=== PATIENT | female | born 1950 | race Caucasian/White ===

== ENCOUNTER 2019-07-18 15:01 | Outpatient (CLI) | payer MEDICARE, SELFPAY ==
--- NOTE | 2019-07-18 15:05 | CT_ITS ---
WS: [id number] CT CHEST WITHOUT INTRAVENOUS CONTRAST HISTORY: PULMONARY NODULE TECHNIQUE: Contiguous 5 mm axial imaging performed on the thorax. Coronal and sagittal reformats are submitted. All CT scans at [facility] use at least one of these dose optimization techniq ues: automated exposure control; mA and/or kV adjustment per patient size (includes targeted exams wh ere dose is matched to clinical indication); or iterative reconstruction. CONTRAST: None DLP: 743.66 mGy.cm COMPARISON: 03/29/2019 Lungs and central airway: Pulmonary hyperexpansion and changes of emphysema. Centrilobular emphysema in the upper lung collier. Micronodule towards the LEFT apex, image 14 of series 3. Additional stable 2 mm nodule RIGHT lower lobe, image 32 of series 3. Previously described subsolid nodule measuring 11 mm in diameter, image 35 of series 3 is stable. Lingular nodule is stable at 5 mm. Pleura: Normal. No pleural effusion. Heart and pericardium: Normal size heart. No pericardial effusion. Mediastinum and willem: No mediastinum or hilar adenopathy. Vessels: Mild atherosclerosis aorta. Pulmonary artery size is top normal and equal to the aorta. Scat tered calcifications in the coronary arteries. Chest wall and lower neck: No soft tissue masses. Upper abdomen: Upper pole RIGHT kidney is atrophied but stable. Cyst in the LEFT kidney are unchanged . Hepatic cysts are also noted with no progression in size. Osseous structures: Increase in thoracic kyphosis. Mild spondylitic changes. CT/CT chest wo con [id number] IMPRESSION: 1. Stable pulmonary nodules since 03/29/2019 and 03/07/2018. The nodule in the medial RIGHT lower lobe has increased slightly in size since 04/09/2017. Need to document additional 12 month follow-up. 2. Recommend noncontrast chest CT follow-up in 12 months. 3. Moderate chronic emphysema.
== END 2019-07-18 15:02 | disposition home or self-care (01) ==
LOC: CT 15:03
PROVIDERS: Family Provider Nurse Practitioner Family; PCP Nurse Practitioner Family; Visit Provider Nurse Practitioner Family
DX: R91.8 Other nonspecific abnormal finding of lung field (principal)
CPT/HCPCS: 71250

== ENCOUNTER 2020-06-14 09:42 | Outpatient (CLI) | payer MEDICARE, SELFPAY ==
--- NOTE | 2020-06-14 09:54 | CT_ITS ---
WS: [id number] CT CHEST TECHNIQUE: Noncontrast CT of the chest with coronal and sagittal reformatted images. CLINICAL INFORMATION: LUNG FIELD ABNORMAL COMPARISON: July 18, 2019 and DLP: 870.[address] scans at [facility] use at least one of these dose optimization techniques: automat ed exposure control; mA and/or kV adjustment per patient size (includes targeted exams where dose is matched to clinical indication); or iterative reconstruction. FINDINGS: Moderate chronic emphysematous changes. No acute pulmonary infiltrates. Right lower lobe pulmonary no dule along the posterior mediastinum measures 9 mm unchanged. Stable subcentimeter right lower lobe a nd lingula nodules. No axillary lymphadenopathy. Stable left renal cysts. Stable hepatic cyst noted in the dome of the li raina. Adrenal glands are normal. CT/CT chest wo con [id number] IMPRESSION: 1. Previously described pulmonary nodules are stable since July 18, 2019. Recommend 12 month follow-up. 2. Moderate chronic emphysematous changes. No acute infiltrates. 3. No mediastinal or hilar lymphadenopathy.
== END 2020-06-14 09:43 | disposition home or self-care (01) ==
LOC: RADWPI 09:50
PROVIDERS: PCP Nurse Practitioner Family; Visit Provider Nurse Practitioner Family
DX: R91.8 Other nonspecific abnormal finding of lung field (principal)
CPT/HCPCS: 71250

== ENCOUNTER 2021-03-17 13:13 | Outpatient (CLI) | payer MEDICARE, SELFPAY ==
--- NOTE | 2021-03-17 13:29 | XR_ITS ---
WS: [id number] XR chest 2V* [id number] REASON FOR EXAM: ATRIAL FIBRILLATION FINDINGS: Mild tortuosity the thoracic aorta. Normal heart size. Calcified granulomatous disease in both hemithoraces. No active pulmonary parenchymal or pleural disease. No significant abnormality of the bony thorax. XR/XR chest 2V* [id number] IMPRESSION: No acute chest abnormality.
== END 2021-03-17 13:14 | disposition home or self-care (01) ==
PROVIDERS: PCP Nurse Practitioner Family; Visit Provider Family Medicine
DX: I48.91 Unspecified atrial fibrillation (principal)
CPT/HCPCS: 71046

== ENCOUNTER 2021-07-07 10:45 | Outpatient (CLI) | payer MEDICARE, SELFPAY ==
--- NOTE | 2021-07-07 11:00 | CT_ITS ---
WS: [id number] CT CHEST WITHOUT INTRAVENOUS CONTRAST HISTORY: LUNG FIELD ABNORMAL TECHNIQUE: Contiguous 5 mm axial imaging performed on the thorax. Coronal and sagittal reformats are submitted. All CT scans at [facility] use at least one of these dose optimization techniques: automated exposure control; mA and/or kV adjustment per patient size (includes targeted exams where dose is matched to clinical indication); or iterative reconstruction. CONTRAST: None DLP: 363.14 mGy.cm COMPARISON: 06/14/2020 and 07/18/2019 Lungs and central airway: Hyperexpanded lungs with emphysema and areas of scarring. There are multipl e small nodules. The largest nodule is some solid nodule measuring 11 mm in the posterior medial RIGH T lower lobe. Not significantly changed in size since at least 03/29/2019. There are a few additional pulmonary nodules also identified with areas of pleural nodularity. No new or increasing nodules. Pleura: No effusion. Heart and pericardium: Normal size heart with no pericardial effusion. Mediastinum and willem: No mediastinum or hilar adenopathy. Vessels: Normal size aortic and pulmonary artery. No coronary artery calcifications. Chest wall and lower neck: No soft tissue masses. Upper abdomen: Multiple large cystic masses in the LEFT kidney. The largest measures 7.3 x 7.9 cm. Fo dread atrophy and scarring of the superior pole RIGHT kidney. Low-attenuation nodule towards the superi or liver surface measures 0.7 cm. Surface of the liver is lobulated suggesting cirrhosis. Osseous structures: No destructive process. CT/CT chest wo con [id number] IMPRESSION: 1. Pulmonary nodules and pleural nodules and scarring are all stable since at 03/29/2019. The largest nodule is subsolid measuring 11 mm in the posterior med ial RIGHT lower lobe. Due to the numerous small nodules consider continued [address] [facility] [address] evaluation. 2. No adenopathy. 3. Marked emphysema.
== END 2021-07-07 10:46 | disposition home or self-care (01) ==
LOC: RAD 10:55
PROVIDERS: PCP Nurse Practitioner Family; Visit Provider Nurse Practitioner Family
DX: R91.8 Other nonspecific abnormal finding of lung field (principal); J43.9 Emphysema, unspecified
CPT/HCPCS: 71250

== ENCOUNTER 2021-11-13 13:48 | Outpatient (CLI) | payer MEDICARE, SELFPAY ==
--- NOTE | 2021-11-13 14:01 | MM_ITS ---
WS: [id number] BILATERAL 3D TOMOSYNTHESIS DIGITAL SCREENING MAMMOGRAPHY WITH CAD CLINICAL INFORMATION: SCREENING HISTORY: Screening mammogram. No current complaints. COMPARISON: TECHNIQUE: Bilateral CC and MLO views. FINDINGS: History of breast reduction Scattered fibroglandular densities bilaterally. Punctate and lucent centered calcifications. Vascular calcification. Biopsy clip LEFT breast. No suspicious focal mass, asymmetry, calcifications, or arch itectural distortion. No evidence of malignancy. MM/[place] [id number] IMPRESSION: BI-RADS: 2-Benign FOLLOW UP: 1 Year Follow-up Recommend return to annual screening mammography.
== END 2021-11-13 13:49 | disposition home or self-care (01) ==
PROVIDERS: PCP Nurse Practitioner Family; Visit Provider Nurse Practitioner Family
DX: Z12.31 Encounter for screening mammogram for malignant neoplasm of breast (principal); M81.0 Age-related osteoporosis without current pathological fracture
CPT/HCPCS: 77063; 77067

== ENCOUNTER 2022-01-06 13:21 | Outpatient (CLI) | payer MEDICARE, SELFPAY ==
--- NOTE | 2022-01-06 13:27 | XR_ITS ---
WS: [id number] SCREENING DEXA SCAN [place] CLINICAL INFORMATION: AGE RELATED OSTEOPOROSIS COMPARISON: 2018 FINDINGS: LEFT forearm bone mineral density measures 0.722. This corresponds to a T score score of -1.8 and Z s core of 0.4. Left femoral neck bone mineral density measures 0.743 g/cm2. This corresponds to a T score of -2.1 an d Z score of -0.7. Right femoral neck bone mineral density measures 0.786 g/cm2. This corresponds to a T score -1.8of an d Z score of -0.4. Mean femoral neck bone mineral density measures 0.765 g/cm2. This corresponds to a T score of -1.9 an d Z score of -0.5. XR/XR DEXA axial skeleton* [id number] IMPRESSION: Osteopenia Patient's FRAX calculated 10 year probability for major osteoporotic fracture i s 12.6 % and osteoporotic hip fracture is 2.9%. Bone mineral density LEFT forearm decreased -5.0% and decreased -11.1% in the f emoral necks since 2018
== END 2022-01-06 13:22 | disposition home or self-care (01) ==
LOC: RAD 13:22
PROVIDERS: PCP Clinical Nurse Specialist Adult Health; Visit Provider Nurse Practitioner Family
DX: M81.0 Age-related osteoporosis without current pathological fracture (principal); M85.80 Other specified disorders of bone density and structure, unspecified site
CPT/HCPCS: 77080

== ENCOUNTER → 2022-03-11 11:13 | Outpatient (BNVA) | payer MEDICARE, SELFPAY | PROVIDERS: PCP Clinical Nurse Specialist Adult Health; Visit Provider Clinical Nurse Specialist Adult Health | DX: I10 Essential (primary) hypertension (principal); E78.5 Hyperlipidemia, unspecified | CPT/HCPCS: 80053; 80061; 85025 ==

== ENCOUNTER → 2022-03-25 12:42 | Outpatient (BNVA) | payer MEDICARE, SELFPAY | PROVIDERS: PCP Clinical Nurse Specialist Adult Health; Visit Provider Internal Medicine | DX: I77.9 Disorder of arteries and arterioles, unspecified (principal); G47.30 Sleep apnea, unspecified; I10 Essential (primary) hypertension; E78.5 Hyperlipidemia, unspecified; I65.23 Occlusion and stenosis of bilateral carotid arteries; I49.3 Ventricular premature depolarization; Z87.891 Personal history of nicotine dependence | CPT/HCPCS: 99214 ==

== ENCOUNTER → 2022-09-11 10:42 | Outpatient (BNVA) | payer MEDICARE, SELFPAY | PROVIDERS: PCP Clinical Nurse Specialist Adult Health; Visit Provider Clinical Nurse Specialist Adult Health | DX: E78.5 Hyperlipidemia, unspecified (principal); I10 Essential (primary) hypertension | CPT/HCPCS: 80053; 80061; 85025 ==

== ENCOUNTER 2022-10-27 11:31 | Outpatient (CLI) | payer MEDICARE, SELFPAY ==
--- NOTE | 2022-10-27 12:30 | CT_ITS ---
WS: [id number] CT chest wo con [id number] HISTORY: hx abnormal CT scan, yearly monitoring TECHNIQUE: Axial imaging performed through the thorax. Coronal and sagittal reformats are submitted. All CT scans at [facility] use at least one of these dose optimization techniques: automated exposure control; mA and/or kV adjustment per patient size (includes targeted exams where dose is mat ched to clinical indication); or iterative reconstruction. CONTRAST: None DLP: 285.45 mGy.cm COMPARISON: 07/07/2021, 06/14/2020 and 03/29/2019 Lungs and central airway: Marked hyperexpansion with central lobular emphysema. Several small, subcen timeter in pulmonary nodules are reidentified. There is a single nodule which is slightly more spicul ated and is very slowly increased in size since 2017 in the medial RIGHT lower lobe. Nodule now measu res 12 x 12 x 10 mm. Prior measurement 8 x 11 x 9 mm. There is additional subsolid opacification supe rior segment RIGHT lower lobe along the fissure which is stable. Pleura: Normal. No pleural effusion. Heart and pericardium: Normal size heart with no pericardial effusion. Mediastinum and willem: No mediastinum or hilar adenopathy. Vessels: Mild atherosclerosis aorta. No aneurysm. Mildly prominent pulmonary artery. Chest wall and lower neck: No soft tissue masses. Upper abdomen: Small hiatal hernia. Low-attenuation 9 mm mass in the superior liver has minimally inc reased in size over the most recent examinations. No new low-attenuation nodules. LEFT renal cysts. N o adrenal mass. Osseous structures: No destructive process. CT/CT chest wo con [id number] IMPRESSION: 1. Slight increase in size of spiculated nodule in the medial RIGHT lower lobe since 2017 and also the most recent study of 07/07/2021. This nodule now measur es 12 x 12 x 10 mm as compared to 8 x 11 x 9 mm from the most recent study. The remaining nodules are subcentimeter and stable. Recommend PET/CT imaging. 2. No adenopathy. 3. Advanced centrilobular emphysema. 4. Pulmonary hypertension. 5. 9 mm low-attenuation lesion superior liver. Probably a cyst but slightly in creased in size. Hepatic nodule can also be reevaluated on PET/CT imaging.
== END 2022-10-27 11:32 | disposition home or self-care (01) ==
PROVIDERS: PCP Clinical Nurse Specialist Adult Health; Visit Provider Clinical Nurse Specialist Adult Health
DX: R91.1 Solitary pulmonary nodule (principal); J43.2 Centrilobular emphysema; I27.20 Pulmonary hypertension, unspecified; K76.9 Liver disease, unspecified
CPT/HCPCS: 71250

== ENCOUNTER 2022-12-05 05:38 | Outpatient (CLI) | payer MEDICARE, SELFPAY ==
--- NOTE | 2022-12-05 11:00 | PETR_ITS ---
PROCEDURE INFORMATION: Exam: PET/CT Skull Base to Mid-thigh Exam date and time: 12/05/2022 11:04 AM Age: 72 years old Clinical indication: Workup of of abnormal radiologic findings on CT chest 10/27/22 (1.2 cm lung nodule in the right lower lobe, 0.9 cm hypodense focus in the liver); Prior surgery; Surgery date: 6+ months; Surgery type: RT kidney, hiatal hernia, back. LABS AND CLINICAL REPORTS: Glucose: 109 mg/dl Treatment strategy for malignancy (PET staging): Restaging (PS) TECHNIQUE: Imaging protocol: Following at least four-hour fasting and following the injection of radiopharmaceutical, low dose CT images were obtained. Then, PET images were obtained. Attenuation corrected images were constructed using the CT scan. Fused images of PET and CT were reviewed. The standardized uptake values (SUV) reported below are maximum values within a region of interest, expressed in gm/ml. Exam includes orbital meatal line to mid-thigh. Radiopharmaceutical: 12.29 mCi F-18 FDG (Fluorodeoxyglucose), IV. Time of imaging post radiopharmaceutical administration: 1 hour Injection site: Right antecubital vein COMPARISON: CT chest 10/27/2022, 06/14/2020, 03/29/2019, 03/07/2018, 04/09/2017 FINDINGS: Brain: Visualized brain has normal physiologic uptake. Pharynx: No abnormal uptake. Larynx: No abnormal uptake. Lungs, pleura and trachea: 1.2 cm right lower lobe nodule on image 68 measures 2 SUV. The maximal size of this lesion is unchanged since 2018 and slightly increased since . Increased solid component present in comparison with 2020. Persistent moderate centrilobular emphysema in the upper lobes. No pleural effusion Heart: Normal physiologic uptake. There is no cardiomegaly. Mild coronary artery calcification is present. There is no pericardial effusion. Mediastinal space: No abnormal uptake. Liver: No abnormal uptake. 0.9 cm cyst in the segment 4 is stable in size since 04/09/2017. Gallbladder and bile ducts: No abnormal uptake. No calcified gallstones. Pancreas: No abnormal uptake. Spleen: No abnormal uptake. No splenomegaly. Adrenal glands: No abnormal uptake. Kidneys and ureters: Normal physiologic uptake. No hydronephrosis. Persistent simple cysts in the left kidney including the largest 8.2 cm cyst exophytic cephalad from the upper pole. Stomach and bowel: No abnormal uptake. Intraperitoneal and retroperitoneal spaces: No abnormal uptake. No ascites. Bladder: Normal physiologic uptake. Reproductive: No abnormal uptake. The uterus is absent post surgically. Vasculature: No abnormal uptake. No aortic aneurysm. Lymph nodes: No abnormal uptake. No lymphadenopathy in the head, neck, chest, abdomen, pelvis, and extremities. Bones/joints: Increased synovial uptake in both shoulders is suggestive of benign degenerative/inflammatory finding. Status post L5-S1 fusion with bilateral transpedicular internal fixation. Soft tissues: No mass. Increased intramuscular uptake in the anterior inferior most aspect of bilateral gluteal muscles represents benign finding. [id number] IMPRESSION: 1.2 cm right lower lobe part solid nodule measures 2 SUV with very minimal increase in solid component since 2020 and slight increase in size since 2018. Malignancy is not excluded. No FDG avid lymphadenopathy or other evidence of metastatic disease. Small cyst in the liver is unchanged since multiple prior exams.
== END 2022-12-05 05:39 | disposition home or self-care (01) ==
LOC: RAD 12-07 05:38
PROVIDERS: PCP Clinical Nurse Specialist Adult Health; Visit Provider Clinical Nurse Specialist Adult Health
DX: R91.1 Solitary pulmonary nodule (principal)
CPT/HCPCS: 78815; A9552

== ENCOUNTER → 2022-12-29 15:41 | Outpatient (BNVA) | payer MEDICARE, SELFPAY | PROVIDERS: PCP Clinical Nurse Specialist Adult Health; Visit Provider Internal Medicine Pulmonary Disease | DX: R91.1 Solitary pulmonary nodule (principal) | CPT/HCPCS: 36415; 99204 ==

== ENCOUNTER → 2023-03-08 16:03 | Outpatient (BNVA) | payer MEDICARE, SELFPAY | PROVIDERS: PCP Clinical Nurse Specialist Adult Health; Visit Provider Internal Medicine Pulmonary Disease | DX: E78.5 Hyperlipidemia, unspecified (principal); R91.1 Solitary pulmonary nodule; J42 Unspecified chronic bronchitis; G25.0 Essential tremor; Z87.891 Personal history of nicotine dependence; M54.50 Low back pain, unspecified | CPT/HCPCS: 99214 ==

== ENCOUNTER 2023-03-15 11:54 | Outpatient (CLI) | payer MEDICARE, SELFPAY ==
--- NOTE | 2023-03-15 12:00 | XRR_ITS ---
PROCEDURE INFORMATION: Exam: XR Right Shoulder Exam date and time: 03/15/2023 12:06 PM Age: 72 years old Clinical indication: Pain; Shoulder; Right; Additional info: Decreased rom and pain with rom TECHNIQUE: Imaging protocol: Radiologic exam of the right shoulder. Views: 2 or more views. COMPARISON: CT chest wo con [id number] 10/27/2022 11:53 AM FINDINGS: Bones/joints: Osteopenia. No radiographic evidence of acute fracture or dislocation. Alignment anatomic. Mild glenohumeral and acromioclavicular osteoarthrosis. Soft tissues: Grossly unremarkable. XR/XR shoulder RT min 2V* [id number] IMPRESSION: Mild glenohumeral and acromioclavicular osteoarthrosis.
== END 2023-03-15 11:55 | disposition home or self-care (01) ==
LOC: RAD 11:56
PROVIDERS: PCP Clinical Nurse Specialist Adult Health; Visit Provider Clinical Nurse Specialist Adult Health
DX: M19.011 Primary osteoarthritis, right shoulder (principal); G25.0 Essential tremor
CPT/HCPCS: 73030; 80053; 84443; 85025

== ENCOUNTER → 2023-03-24 12:32 | Outpatient (BNVA) | payer MEDICARE, SELFPAY | PROVIDERS: PCP Clinical Nurse Specialist Adult Health; Visit Provider Internal Medicine | DX: I77.9 Disorder of arteries and arterioles, unspecified (principal); G47.30 Sleep apnea, unspecified; I10 Essential (primary) hypertension; E78.5 Hyperlipidemia, unspecified; I65.23 Occlusion and stenosis of bilateral carotid arteries; I49.3 Ventricular premature depolarization; Z87.891 Personal history of nicotine dependence | CPT/HCPCS: 99214 ==

== ENCOUNTER 2023-04-05 03:00 | Outpatient (CLI) | payer MEDICARE, SELFPAY ==
--- NOTE | 2023-04-05 15:15 | USCV_ITS ---
Laura Dunham Age: 72 Gender: F : 1950 Exam Date: 04/05/2023 15:12 Ordering Phys: Jerrod Jacome M.D ([email or web address]) Technologist: YANELI Exam Location: [facility] – [place] Indication: bilateral carotid stenosis Risk Factors: none Previous Vascular Surgery: none Right Brachial BP: / Left Brachial BP: / Right Left Velocity (cm/s) Spectral Plaque Velocity (cm/s) Spectral Plaque Syst/Diast Broadening Syst/Diast Broadening 52.00/ 14.00 Prox CCA 49.60 / 14.50 62.10/ 1701.0 Mid CCA 32.20 / 11.20 0 28.90/ 13.80 Distal CCA 30.20 / 9.90 52.60/ 19.10 Prox ICA 48.00 / 14.50 58.90/ 23.20 Mid ICA 75.40 / 24.90 71.90/ 22.60 Distal ICA 77.40 / 26.40 51.90 ECA 72.20 1.16 ICA/CCA 1.56 Antegrade Vertebral Antegrade 42.20/ 8.50 cm/s 44.40/ 7.30 cm/s Tri Subclavian Tri 168.9 86.00 0 CONCLUSIONS Right ICA stenosis <50%. Mild atheromatous plaque right carotid bulb/ICA. Left ICA stenosis <50%. Mild atheromatous plaque left carotid bulb/ICA. Intimal thickening in the common carotid arteries and internal carotid arteries bilaterally. Normal antegrade Doppler flow noted in the right vertebral artery. Normal antegrade Doppler flow noted in the left vertebral artery. Bharathi Montana MD (Electronically Signed) Final Date: 05 April 2023 16:23 S
== END 2023-04-05 03:01 | disposition home or self-care (01) ==
LOC: RAD 06-21 09:54
PROVIDERS: PCP Clinical Nurse Specialist Adult Health; Visit Provider Internal Medicine
DX: I65.23 Occlusion and stenosis of bilateral carotid arteries (principal)
CPT/HCPCS: 93880

== ENCOUNTER 2023-04-05 14:19 | Outpatient (CLI) | payer MEDICARE, SELFPAY ==
--- NOTE | 2023-04-05 | USCV_ITS ---
Laura Dunham Age: 72 Gender: F : 1950 Exam Date: 04/05/2023 15:12 Ordering Phys: Jerrod Jacome M.D ([email or web address]) Technologist: YANELI Exam Location: [facility] – [place], [place] Indication: bilateral carotid stenosis Risk Factors: none Previous Vascular Surgery: none Right Brachial BP: / Left Brachial BP: / Right Left Velocity (cm/s) Spectral Plaque Velocity (cm/s) Spectral Plaque Syst/Diast Broadening Syst/Diast Broadening 52.00/ 14.00 Prox CCA 49.60 / 14.50 62.10/ 1701.0 Mid CCA 32.20 / 11.20 0 28.90/ 13.80 Distal CCA 30.20 / 9.90 52.60/ 19.10 Prox ICA 48.00 / 14.50 58.90/ 23.20 Mid ICA 75.40 / 24.90 71.90/ 22.60 Distal ICA 77.40 / 26.40 51.90 ECA 72.20 1.16 ICA/CCA 1.56 Antegrade Vertebral Antegrade 42.20/ 8.50 cm/s 44.40/ 7.30 cm/s Tri Subclavian Tri 168.9 86.00 0 CONCLUSIONS Right ICA stenosis <50%. Mild atheromatous plaque right carotid bulb/ICA. Left ICA stenosis <50%. Mild atheromatous plaque left carotid bulb/ICA. Intimal thickening in the common carotid arteries and internal carotid arteries bilaterally. Normal antegrade Doppler flow noted in the right vertebral artery. Normal antegrade Doppler flow noted in the left vertebral artery. Bharathi Montana MD (Electronically Signed) Final Date: 05 April 2023 16:23 S
--- NOTE | 2023-04-05 14:30 | USCV_ITS ---
Charla Laura Age: 72 Gender: F : 1950 Exam Date: 04/05/2023 14:50 Ordering Phys: Jerrod Jacome M.D ([email or web address]) Technologist: YANELI [place] [facility] [place] Indication: CP, SOB BP: 130 / 70 HR: 54 Rhythm: Sinus Technical Quality: Adequate MEASUREMENTS (Male / Female) Normal Values 2D ECHO LV Diastolic Diameter PLAX 4.1 cm 4.2 - 5.9 / 3.9 - 5.3 cm LV Systolic Diameter PLAX 2.3 cm IVS Diastolic Thickness 1.0 cm 0.6 - 1.0 / 0.6 - 0.9 cm IVS Systolic Thickness 1.3 cm LVPW Diastolic Thickness 1.0 cm 0.6 - 1.0 / 0.6 - 0.9 cm LVPW Systolic Thickness 1.7 cm LVOT Diameter 2.0 cm LV Ejection Fraction 2D Teich 76.7 % LV Ejection Fraction MOD 2C 75.8 % LV Ejection Fraction 2C AL 75.2 % LA Diameter 2.4 cm LA Width 3.4 cm LA Height 3.7 cm RA Width 3.2 cm RA Height 3.9 cm Aorta at Sinotubular Diameter 2.1 cm IVC Diameter 1.2 cm M-MODE Aortic Annulus Diameter 2.3 cm LA Ao Ratio MM 1.3 MV E Point Septal Separation 0.5 cm DOPPLER AV Peak Velocity 137.0 cm/s LVOT Peak Velocity 108.0 cm/s AV Area Cont Eq vti 2.5 cm squared AV Area Cont Eq pk 2.5 cm squared MV Peak Velocity 118.0 cm/s MV Area PHT 2.8 cm squared Mitral E to A Ratio 0.8 MV E' Velocity 42.0 cm/s Mitral E to MV E' Ratio 9.0 Mitral E to LV E' Lateral Ratio 8.5 Mitral E to LV E' Septal Ratio 9.6 TR Peak Velocity 92.3 cm/s TR Peak Gradient 3.4 mmHg Right Atrial Pressure 5.0 mmHg Pulmonary Artery Systolic Pressu 8.4 mmHg PV Peak Velocity 82.0 cm/s RV Acceleration Time 0.1 s RV Ejection Time 0.3 s RV AcT/ET 0.2 FINDINGS Left Ventricle Left ventricle is normal in size. LV systolic function is normal with EF of 55 to 60%. No regional wall motion abnormalities are seen. Grade 1 diastolic dysfunction Right Ventricle Normal in size and function Right Atrium Normal in size Left Atrium Normal in size Mitral Valve Structurally normal mitral valve. Mild mitral regurgitation Aortic Valve Structurally normal aortic valve. No significant stenosis. Trace aortic regurgitation. Tricuspid Valve Trace tricuspid regurgitation. Insufficient TR jet to calculate RVSP. Pulmonic Valve Not well visualized Pericardium Normal Aorta Normal in size IVC Appears to be normal CONCLUSIONS LV systolic function is normal with EF of 55 to 60%. Grade 1 diastolic dysfunction. Mild mitral regurgitation Trace aortic regurgitation Trace tricuspid regurgitation Compared to prior echocardiogram from 2016, no significant changes are seen Jerrod Jacome MD (Electronically Signed) Final Date: 06 April 2023 14:04 S
== END 2023-04-05 14:20 | disposition home or self-care (01) ==
LOC: RAD 14:19
PROVIDERS: PCP Clinical Nurse Specialist Adult Health; Visit Provider Internal Medicine
DX: R06.02 Shortness of breath (principal); R07.9 Chest pain, unspecified; I65.23 Occlusion and stenosis of bilateral carotid arteries; I51.89 Other ill-defined heart diseases; I34.0 Nonrheumatic mitral (valve) insufficiency
CPT/HCPCS: 93306; 93880

== ENCOUNTER → 2023-05-14 09:43 | Outpatient (BNVA) | payer MEDICARE, SELFPAY | PROVIDERS: PCP Clinical Nurse Specialist Adult Health; Visit Provider Specialist | DX: G90.3 Multi-system degeneration of the autonomic nervous system (principal); R13.10 Dysphagia, unspecified; F03.B0 Unspecified dementia, moderate, without behavioral disturbance, psychotic disturbance, mood disturbance, and anxiety | CPT/HCPCS: 99205 ==

== ENCOUNTER 2023-06-03 12:36 | Outpatient (RCR) | payer MEDICARE, SELFPAY | END 2023-06-03 23:59 | disposition home or self-care (01) | LOC: SST 12:36 | PROVIDERS: PCP Clinical Nurse Specialist Adult Health; Visit Provider Specialist | DX: R13.10 Dysphagia, unspecified (principal) | CPT/HCPCS: 92610 ==

== ENCOUNTER → 2023-06-14 14:32 | Outpatient (BNVA) | payer MEDICARE, SELFPAY | PROVIDERS: PCP Clinical Nurse Specialist Adult Health; Visit Provider Clinical Nurse Specialist Adult Health | DX: I10 Essential (primary) hypertension (principal) | CPT/HCPCS: 85025 ==

== ENCOUNTER 2023-06-22 10:27 | Outpatient (CLI) | payer MEDICARE, SELFPAY ==
--- NOTE | 2023-06-22 11:00 | CT_ITS ---
WS: [id number] CT chest wo con [id number] HISTORY: follow-up on lung nodule TECHNIQUE: Axial imaging performed through the thorax. Coronal and sagittal reformats are submitted. All CT scans at [facility] use at least one of these dose optimization techniques: automated exposure control; mA and/or kV adjustment per patient size (includes targeted exams where dose is mat ched to clinical indication); or iterative reconstruction. CONTRAST: None DLP: 325.54 mGy.cm COMPARISON: 10/27/2022, 07/07/2021, 06/14/2020 PET/CT 12/05/2022 Lungs and central airway: Chronic emphysema. Bullous emphysema. Reidentified is a solid nodule with s piculation involving the superior medial segment RIGHT lower lobe. Spiculated nodule is reidentified now measuring 15 x 12 x 13 mm. This nodule has slowly increased in size over the last several years. Indeterminate but suspicious by PET/CT. There is an additional area of very subtle subcentimeter grou ndglass attenuation towards the superior segment RIGHT lower lobe. 4 mm pleural nodule LEFT lower lob e unchanged. No additional mass or nodule or pneumonia. Pleura: Normal. No pleural effusion. Heart and pericardium: Mild cardiomegaly. Mediastinum and willem: No mediastinum or hilar adenopathy. Vessels: Normal size aortic and pulmonary artery. No coronary artery calcifications. Chest wall and lower neck: No soft tissue masses. Upper abdomen: Large hiatal hernia. Several cysts are identified in the upper pole the LEFT kidney. Osseous structures: No destructive process. IMPRESSION: 1. Continued slow increase in size of the spiculated nodule superior medial segment RIGHT lower lobe . Nodule measures 15 x 12 x 13 mm as compared to 12 x 12 x 10 mm. Nodule has slowly increased in size over several prior examinations and was suspicious but indeterminate on recent PET/CT. This lesion i s suspicious for neoplasm. 2. Emphysema. 3. No mediastinal or hilar adenopathy. 4. Mild cardiomegaly. 5. Hepatic and LEFT renal cyst.
== END 2023-06-22 10:28 | disposition home or self-care (01) ==
LOC: RAD 10:27
PROVIDERS: PCP Clinical Nurse Specialist Adult Health; Visit Provider Internal Medicine Pulmonary Disease
DX: R91.1 Solitary pulmonary nodule (principal); J43.9 Emphysema, unspecified
CPT/HCPCS: 71250

== ENCOUNTER → 2023-07-12 13:56 | Outpatient (BNVA) | payer MEDICARE, BC, SELFPAY | PROVIDERS: PCP Clinical Nurse Specialist Adult Health; Visit Provider Internal Medicine Pulmonary Disease | DX: J42 Unspecified chronic bronchitis (principal); R91.1 Solitary pulmonary nodule; G25.0 Essential tremor; F17.210 Nicotine dependence, cigarettes, uncomplicated | CPT/HCPCS: 99214 ==

== ENCOUNTER → 2023-07-15 12:55 | Outpatient (BNVA) | payer MEDICARE, SELFPAY | PROVIDERS: PCP Clinical Nurse Specialist Adult Health; Visit Provider Specialist | DX: R13.10 Dysphagia, unspecified (principal); G25.0 Essential tremor | CPT/HCPCS: 99214 ==

== ENCOUNTER 2023-07-27 11:51 | Outpatient (CLI) | payer MEDICARE, SELFPAY ==
--- NOTE | 2023-07-27 12:30 | PETR_ITS ---
PROCEDURE INFORMATION: Exam: PET/CT Skull Base to Mid-thigh Exam date and time: 07/27/2023 12:43 PM Age: 72 years old Clinical indication: Abnormal findings; Continued slow increase in size of the spiculated nodule superior medial segment right lower. Lobe. Nodule measures 15 x 12 x 13 mm as compared to 12 x 12 x 10 mm. Nodule has slowly increased in. Size over several prior examinations and was suspicious but indeterminate on recent pet/ct. This. Lesion is suspicious for neoplasm. ; Additional info: Pulmonary nodule LABS AND CLINICAL REPORTS: Glucose: 114 mg/dl Treatment strategy for malignancy (PET staging): Initial Staging (PI) TECHNIQUE: Imaging protocol: Following at least four-hour fasting and following the injection of radiopharmaceutical, low dose CT images were obtained. Then, PET images were obtained. Attenuation corrected images were constructed using the CT scan. Fused images of PET and CT were reviewed. The standardized uptake values (SUV) reported below are maximum values within a region of interest, expressed in gm/ml. Exam includes orbital meatal line to mid-thigh. Radiopharmaceutical: 12.19 mCi F-18 FDG (Fluorodeoxyglucose), IV. Time of imaging post radiopharmaceutical administration: 1 hour Injection site: Right antecubital vein COMPARISON: CT chest 06/22/2023, PET skulltothigh SUBSEQ [id number] 12/05/2022 FINDINGS: Brain: Visualized brain has normal physiologic uptake. Pharynx: No abnormal uptake. Larynx: No abnormal uptake. Lungs, pleura and trachea: No abnormal uptake. 12 mm part solid opacity medially in the right lower lobe on axial image 97 is not FDG avid (1.4 SUV). 8 mm ground-glass opacity in the superior segment of the right lower lobe on axial image 80 is not FDG avid. There is moderate centrilobular emphysema in the upper lungs. No pleural effusion. Heart: Normal physiologic uptake. There is no cardiomegaly. Coronary artery calcification is present. There is no pericardial effusion. Mediastinal space: No abnormal uptake. Liver: No abnormal uptake. Stable 1.2 cm simple cyst in the segment 4. Gallbladder and bile ducts: No abnormal uptake. No calcified gallstones. Pancreas: No abnormal uptake. Spleen: No abnormal uptake. No splenomegaly. Adrenal glands: No abnormal uptake. No nodules. Kidneys and ureters: Normal physiologic uptake. No hydronephrosis. Simple cysts in both kidneys including the largest 8.5 cm cyst exophytic from the upper pole of the left kidney. Stomach and bowel: No abnormal uptake. Intraperitoneal and retroperitoneal spaces: No abnormal uptake. No ascites. Urinary bladder: Normal physiologic uptake. Reproductive: No abnormal uptake. The uterus is absent post surgically. Vasculature: No abnormal uptake. No aortic aneurysm. Lymph nodes: No abnormal uptake. No lymphadenopathy in the head, neck, chest, abdomen, pelvis, and extremities. Bones/joints: Increased linear synovial uptake anteriorly to the head of the left femur is suggestive of benign finding. Status post L5-S1 fusion with anterior interbody internal fixation Soft tissues: No abnormal uptake in the visualized head, neck, chest, abdomen, pelvis, and extremities. [id number] IMPRESSION: No abnormal radiotracer uptake to suggest malignancy. 12 mm part solid right lower lobe nodule stable in size since 12/05/2022 is not FDG avid (current uptake 1.4 SUV, previously 2 SUV). Stable non FDG avid 8 mm ground-glass opacity in the right lower lobe. Additional stable benign incidental findings (small hepatic cyst, bilateral simple renal cysts, prior hysterectomy, postsurgical changes in the lumbar spine).
== END 2023-07-27 11:52 | disposition home or self-care (01) ==
LOC: RAD 11:51
PROVIDERS: PCP Clinical Nurse Specialist Adult Health; Visit Provider Internal Medicine Pulmonary Disease
DX: R91.1 Solitary pulmonary nodule (principal)
CPT/HCPCS: 78815; A9552

== ENCOUNTER → 2023-08-03 14:46 | Outpatient (BNVA) | payer MEDICARE, SELFPAY | PROVIDERS: PCP Clinical Nurse Specialist Adult Health; Visit Provider Internal Medicine Pulmonary Disease | DX: R91.1 Solitary pulmonary nodule (principal); J42 Unspecified chronic bronchitis; G25.0 Essential tremor; Z87.891 Personal history of nicotine dependence | CPT/HCPCS: 99214 ==

== ENCOUNTER 2023-08-04 12:12 | Outpatient (CLI) | payer MEDICARE, SELFPAY ==
[2023-08-04 12:50] VITALS: PULSE 60; RESP 18; O2SAT 98
[2023-08-04] MEDS: albuterol 2.5 mg/3 mL Neb INHALATION (12:50)
[2023-08-04 12:55] VITALS: PULSE 61
== END 2023-08-04 12:13 | disposition home or self-care (01) ==
PROVIDERS: PCP Clinical Nurse Specialist Adult Health; Visit Provider Internal Medicine Pulmonary Disease
DX: R06.02 Shortness of breath (principal)
CPT/HCPCS: 94060; 94618; 94726; 94729; J7613

== ENCOUNTER → 2023-08-12 15:00 | Outpatient (BNVA) | payer MEDICARE, SELFPAY | PROVIDERS: PCP Clinical Nurse Specialist Adult Health; Visit Provider Specialist | DX: G20.C Parkinsonism, unspecified (principal); G24.3 Spasmodic torticollis | CPT/HCPCS: 64616; 99213; J0585 ==

== ENCOUNTER → 2023-09-15 12:20 | Outpatient (BNVA) | payer MEDICARE, SELFPAY | PROVIDERS: PCP Clinical Nurse Specialist Adult Health; Visit Provider Clinical Nurse Specialist Adult Health | DX: I10 Essential (primary) hypertension (principal); E78.5 Hyperlipidemia, unspecified; J42 Unspecified chronic bronchitis | CPT/HCPCS: 80053; 80061; 83036; 85025 ==

== ENCOUNTER 2023-10-09 12:09 | Emergency (ER) | payer MEDICARE, SELFPAY ==
[2023-10-09 12:30] VITALS: BP 144/70; PULSE 55; RESP 16; TEMP 36.5; O2SAT 98
--- NOTE | 2023-10-09 12:58 | XRR_ITS ---
PROCEDURE INFORMATION: Exam: XR Right Tibia and Fibula Exam date and time: 10/09/2023 1:31 PM Age: 73 years old Clinical indication: Injury or trauma; Fall; Blunt trauma; Lower leg; Right; Additional info: Pain TECHNIQUE: Imaging protocol: Radiologic exam of the right tibia and fibula. Views: 2 views. COMPARISON: CR XR knee RT 3V* [id number] 10/09/2023 1:31 PM FINDINGS: Bones/joints: Achilles enthesophyte. Soft tissues: There soft swelling around the ankle joint. Vasculature: Phleboliths at the medial aspect of the distal leg. XR/XR tibia fibula RT 2V [id number] IMPRESSION: No acute fracture or dislocation.
--- NOTE | 2023-10-09 12:59 | XRR_ITS ---
PROCEDURE INFORMATION: Exam: XR Right Knee Exam date and time: 10/09/2023 1:31 PM Age: 73 years old Clinical indication: Injury or trauma; Fall; Blunt trauma; Knee; Right; Additional info: Pain TECHNIQUE: Imaging protocol: Radiologic exam of the right knee. Views: 3 views. COMPARISON: CR (LOW EXM, ) 10/09/2023 1:31 PM FINDINGS: Bones/joints: Mild degenerative disease of the knee joint. No knee joint effusion. No acute fracture or dislocation. Soft tissues: Quadriceps enthesophytes. XR/XR knee RT 3V* [id number] IMPRESSION: No acute fracture or dislocation.
--- NOTE | 2023-10-09 13:16 | USR_ITS ---
PROCEDURE INFORMATION: Exam: US Duplex Right Lower Extremity Veins, Limited Exam date and time: 10/09/2023 2:20 PM Age: 73 years old Clinical indication: Pain; Leg, lower; Right; Additional info: Right-sided calf pain and swelling. Concern for dvt TECHNIQUE: Imaging protocol: Real-time duplex ultrasound of the right extremity with 2-D mariano scale, color Doppler flow and spectral waveform analysis including responses to compression and other maneuvers (when performed) with image documentation. Limited exam was focused on the right lower extremity veins. COMPARISON: CR (LOW EXM, ) 10/09/2023 1:31 PM FINDINGS: Right deep veins: Unremarkable. The common femoral, femoral, proximal profunda femoral and popliteal veins are patent without thrombus. Normal Doppler waveforms. Normal compressibility and/or augmentation response. Superficial veins: Greater saphenous vein at the saphenofemoral junction is patent without thrombus. Soft tissues: Varicosities at the area of pain at the right maher with possible thrombus in the varicosity. US/[place] [id number] IMPRESSION: 1. No evidence of deep vein thrombosis. 2. Varicosities at the area of pain at the right maher with possible thrombus in the varicosity.
--- NOTE | 2023-10-09 13:19 | ED_ITS ---
HPI - Extremity Problem General: Chief complaint: Extremity Problem,Nontraumatic Stated complaint: right leg pain Time Seen by Provider: 10/09/23 13:10 History of Present Illness: Patient has had pain and swelling in her right leg distally for about 4 months now. She is back to make a trip and was worried she might have a DVT so she came to the emergency room. She has what appears to be some varicosities on the anterior leg. And then she had developed some pain in her calf and was concerned about this. No chest pain. No shortness of breath. No tachycardia. No swelling or redness of the calf. Review of Systems Narrative: Constitutional symptoms: Negative except as documented in HPI. Skin symptoms: Negative except as documented in HPI. Eye symptoms: Negative except as documented in HPI. ENMT symptoms: Negative except as documented in HPI. Respiratory symptoms: Negative except as documented in HPI. Cardiovascular symptoms: Negative except as documented in HPI. Gastrointestinal symptoms: Negative except as documented in HPI. Genitourinary symptoms: Negative except as documented in HPI. Musculoskeletal symptoms: Negative except as documented in HPI. Neurologic symptoms: Negative except as documented in HPI. Psychiatric symptoms: Negative except as documented in HPI. Endocrine symptoms: Negative except as documented in HPI. PFS ED PFSH: Medical History (Updated 10/09/23 @ 14:41 by Ana Everett MD) Right shoulder pain Sleep apnea noncompliant with CPAP Allergic rhinitis Extrinsic allergic asthma Cervicalgia DDD (degenerative disc disease) buttermaker prescription opiate use Essential hypertension COPD (chronic obstructive pulmonary disease) GERD (gastroesophageal reflux disease) Hyperlipidemia Mild cognitive impairment with memory loss Parkinson's plus syndrome Carotid stenosis, bilateral Tremor Osteoarthritis Peripheral neuropathy Lung nodule Hyperglycemia Surgical History S/P lumbar laminectomy S/P insertion of spinal cord stimulator Previous back surgery S/P hysterectomy S/P sinus surgery S/P tonsillectomy S/P hernia repair S/P cataract extraction H/O kidney removal S/P eye surgery Family History Other CAD (coronary artery disease) Cancer Diabetes Stroke Social History Smoking and tobacco/nicotine status: former use of tobacco/nicotine Quit status (tobacco/nicotine): has quit using Year quit tobacco: 1999 Former quit date comment: 0.5 X 43 years Alcohol intake: former Substance/Drug Use: never Household members: spouse Marital status: Current occupational status: retired Current gender identity: Female Physical Exam Narrative: EXAM NARRATIVE: General: Alert, no acute distress. Skin: warm and dry Head: Normocephalic Neck: Trachea midline Eye: Extraocular movements are intact. Ears, nose, mouth and throat: Oral mucosa moist Respiratory: Respirations are non-labored Musculoskeletal: Normal ROM Neurological: Alert and oriented to person, place, time, and situation, No focal neurological deficit observed. Psychiatric: Cooperative, appropriate mood & affect. Course Vital Signs: Vital signs: Vital Signs Temperature 97.7 F 10/09/23 12:30 Pulse Rate 55 L 10/09/23 12:30 Respiratory Rate 16 10/09/23 12:30 Blood Pressure 144/70 10/09/23 12:30 Pulse Oximetry 98 10/09/23 12:30 Oxygen Delivery Me thod Room Air 10/09/23 12:30 MDM - Extremity (Nontraumatic) Medical Decision Making X-ray of the right tibia and fibula. No acute fractures or dislocations. X-ray of the right knee. No fractures or dislocations. Ultrasound of the right lower extremity shows no DVT. Perhaps some small varicosities on the anterior of the leg. Assessment and plan: Varicose veins -maybe a small clot in one of her varicose veins on the anterior leg. Recommended heat packs and full-strength aspirin and follow-up with her primary - Discharged home - Discussed plan with patient. Answered any questions. - Evaluation and treatment of this problem were appropriate in the emergency setting. XR interpretation done by ED provider, pending radiology final review Discharge Plan Discharge Patient Disposition: Home Clinical Impression: Lower extremity pain, Varicose veins of lower extremity Condition: Stable Prescriptions: No Action polyethylene glycol 3350 [Miralax] 17 gram powder in packet 17 g PO DAILY PreserVision AREDS-2 250-90-40-1 mg capsule 1 tab PO DAILY Systane Complete 0.6 % drops 1 drop ophthalmic (eye) BID PRN acetaminophen 500 mg capsule 500 mg PO TID PRN nitroglycerin [Nitrostat] 0.4 mg tablet, sublingual 0.4 mg SUBLINGUAL Q5M PRN fluticasone propionate [Allergy Relief (fluticasone)] 50 mcg/actuation spray,suspension 1 spray INTRANASAL BID glucosamine HCl 1,500 mg tablet 500 mg PO .COMPLEX Rx Instructions: 500 mg PO; diphenhydramine HCl [Allergy (diphenhydramine)] 25 mg capsule 25 mg PO TID PRN primidone 250 mg tablet 125 mg PO BID Qty: 90 3RF Advair HFA 230-21 mcg/actuation HFA aerosol inhaler 2 puff inhalation Q12H Qty: 12 11RF gabapentin 300 mg capsule 300 mg PO TID Qty: 270 3RF epinephrine [EpiPen 2-Daryl] 0.3 mg/0.3 mL auto-injector 0.3 mg IM ONCE Qty: 2 0RF montelukast 10 mg tablet 10 mg PO DAILY Qty: 90 3RF enalapril maleate 5 mg tablet 5 mg PO BID Qty: 180 3RF rosuvastatin [Crestor] 10 mg tablet 10 mg PO .HS Qty: 90 3RF albuterol sulfate [Ventolin HFA] 90 mcg/actuation HFA aerosol inhaler 2 puff INHALATION Q6H PRN (Reason: shortness of breath or wheezing) Qty: 8.5 11RF lansoprazole 30 mg capsule,delayed release(DR/EC) 30 mg PO DAILY Qty: 90 3RF diltiazem HCl [Cardizem] 30 mg tablet 30 mg PO BID Qty: 180 3RF propranolol 80 mg capsule,extended release 24 hr 80 mg PO DAILY Qty: 90 3RF Spiriva with HandiHaler 18 mcg capsule, w/inhalation device 1 cap INHALATION DAILY Qty: 90 3RF spironolacton-hydrochlorothiaz 25-25 mg tablet 1 tab PO DAILY Qty: 90 3RF cetirizine 10 mg tablet 10 mg PO DAILY Qty: 90 3RF Discharge Orders: Discharge ED (Routine); Ordered 10/09/23 Ordered By: Ana Everett Referrals: Flako Hyde [facility] [Primary Care Provider] - (You have been screened and evaluated and felt safe for discharge. Health conditions do change or evolve sometimes and as such it is important that you follow up with your Primary Do ctor to be re checked, 3-5 days is a general good time frame for follow up. You are always welcome to return to the ED for re assessment if your symptoms are worsening or you have new concerns) Discharge Diet: Usual diet Discharge Activity: Resume usual activity Patient Instructions: Varicose Veins Coding Level of Care Code ED Extruding Press Operator for Jean Marie Tesfaye
[2023-10-09 15:25] VITALS: PULSE 60; O2SAT 99
== END 2023-10-09 14:00 | disposition home or self-care (01) ==
PROVIDERS: Emergency Provider Emergency Medicine; PCP Clinical Nurse Specialist Adult Health
DX: M79.604 Pain in right leg (principal); I83.91 Asymptomatic varicose veins of right lower extremity; I10 Essential (primary) hypertension; J44.9 Chronic obstructive pulmonary disease, unspecified; E78.5 Hyperlipidemia, unspecified; G20.A1 Parkinson's disease without dyskinesia, without mention of fluctuations
CPT/HCPCS: 73562; 73590; 93971; 99284

== ENCOUNTER → 2023-11-18 12:58 | Outpatient (BNVA) | payer MEDICARE, SELFPAY | PROVIDERS: PCP Clinical Nurse Specialist Adult Health; Visit Provider Specialist | DX: G24.3 Spasmodic torticollis (principal); G23.2 Striatonigral degeneration; G20.C Parkinsonism, unspecified | CPT/HCPCS: 64616; 99213; J0585 ==

== ENCOUNTER → 2023-12-15 12:26 | Outpatient (BNVA) | payer MEDICARE, SELFPAY | PROVIDERS: PCP Clinical Nurse Specialist Adult Health; Visit Provider Specialist | DX: R13.10 Dysphagia, unspecified (principal); G23.2 Striatonigral degeneration; G24.3 Spasmodic torticollis | CPT/HCPCS: 99214 ==

== ENCOUNTER → 2023-12-22 12:47 | Outpatient (BNVA) | payer MEDICARE, SELFPAY | PROVIDERS: PCP Clinical Nurse Specialist Adult Health; Visit Provider Internal Medicine | DX: I77.9 Disorder of arteries and arterioles, unspecified (principal); G47.30 Sleep apnea, unspecified; I10 Essential (primary) hypertension; E78.2 Mixed hyperlipidemia; I65.23 Occlusion and stenosis of bilateral carotid arteries; I49.3 Ventricular premature depolarization; Z87.891 Personal history of nicotine dependence | CPT/HCPCS: 99214 ==

== ENCOUNTER → 2024-02-17 11:48 | Outpatient (BNVA) | payer MEDICARE, SELFPAY | PROVIDERS: PCP Clinical Nurse Specialist Adult Health; Visit Provider Specialist | DX: G23.2 Striatonigral degeneration (principal); G24.3 Spasmodic torticollis | CPT/HCPCS: 64642; 64644; J0585 ==

== ENCOUNTER → 2024-05-10 14:03 | Outpatient (BNVA) | payer MEDICARE, SELFPAY | PROVIDERS: PCP Clinical Nurse Specialist Adult Health; Visit Provider Family Medicine | DX: I10 Essential (primary) hypertension (principal); E78.2 Mixed hyperlipidemia; K21.9 Gastro-esophageal reflux disease without esophagitis; K59.09 Other constipation; D64.9 Anemia, unspecified; I49.3 Ventricular premature depolarization | CPT/HCPCS: 80053; 82607; 83540; 85025 ==

== ENCOUNTER → 2024-05-26 13:20 | Outpatient (BNVA) | payer MEDICARE, SELFPAY | PROVIDERS: PCP Family Medicine; Visit Provider Specialist | DX: G24.3 Spasmodic torticollis (principal); G23.2 Striatonigral degeneration | CPT/HCPCS: 64616; 99213; J0585 ==

== ENCOUNTER → 2024-08-25 11:45 | Outpatient (BNVA) | payer MEDICARE, SELFPAY | PROVIDERS: PCP Family Medicine; Visit Provider Specialist | DX: G24.3 Spasmodic torticollis (principal); G23.2 Striatonigral degeneration | CPT/HCPCS: 64616; 99213; J0585; J9999 ==

== ENCOUNTER → 2024-11-16 14:18 | Outpatient (BNVA) | payer MEDICARE, SELFPAY | PROVIDERS: PCP Family Medicine; Visit Provider Family Medicine | DX: I49.3 Ventricular premature depolarization (principal); I10 Essential (primary) hypertension; E78.2 Mixed hyperlipidemia; D51.9 Vitamin B12 deficiency anemia, unspecified; M54.9 Dorsalgia, unspecified; G89.29 Other chronic pain; I65.23 Occlusion and stenosis of bilateral carotid arteries | CPT/HCPCS: 80053; 80061; 82607; 83540; 84443; 85025 ==

== ENCOUNTER → 2024-12-01 13:57 | Outpatient (BNVA) | payer MEDICARE, SELFPAY | PROVIDERS: PCP Family Medicine; Visit Provider Specialist | DX: G24.3 Spasmodic torticollis (principal) | CPT/HCPCS: 64616; 99212; J0585; J9999 ==

== ENCOUNTER 2024-12-11 15:48 | Outpatient (CLI) | payer MEDICARE, SELFPAY ==
--- NOTE | 2024-12-11 16:15 | CTR_ITS ---
PROCEDURE INFORMATION: Exam: CT Chest Without Contrast; Diagnostic Exam date and time: 12/11/2024 4:01 PM Age: 74 years old Clinical indication: Condition or disease; Lung condition and disease; Other: Rll spiculated nodule; Additional info: 1 yr f/u rll spiculated nodule TECHNIQUE: Imaging protocol: Diagnostic computed tomography of the chest without contrast. Radiation optimization: All CT scans at this facility use at least one of these dose optimization techniques: automated exposure control; mA and/or kV adjustment per patient size (includes targeted exams where dose is matched to clinical indication); or iterative reconstruction. COMPARISON: PT PET skull to thigh INIT [id number] 07/27/2023 12:43 PM RADIATION DOSE METRICS: Total DLP (mGy-cm): 336.62 FINDINGS: Lungs: New since the prior examination is a 2.0 x 1.4 cm masslike density at the left lung base (5:44). This was not present previously. Differential considerations include rounded atelectasis or consolidation versus mass. Follow-up per Fleischner society guidelines. Semi-solid nodular density at the medial right lung base is stable still measuring 15 mm in size. Tiny right lower lobe pulmonary nodules are unchanged. Pleural spaces: Unremarkable. No pneumothorax. No pleural effusion. Heart: Unremarkable. No cardiomegaly. No pericardial effusion. Lymph nodes: Visible central lymph nodes are not pathologically enlarged. Vasculature: Unremarkable. No aortic aneurysm. Bones/joints: Unremarkable. No acute fracture. Soft tissues: Unremarkable. CT/CT chest wo con [id number] IMPRESSION: New masslike density at the left lung base. The other nodular densities are stable. For both low risk and high risk patients, consider CT Chest at 3 months, PET/CT, or biopsy. (Reference: Ko) References: Vickihokennedy H, et al. Guidelines for Management of Incidental Pulmonary Nodules Detected on CT Images: From the Fleischner Society 2017. Radiology. 2017;284(1):228-243.
== END 2024-12-11 15:49 | disposition home or self-care (01) ==
LOC: RAD 15:49
PROVIDERS: PCP Family Medicine; Visit Provider Family Medicine
DX: R91.1 Solitary pulmonary nodule (principal); R91.8 Other nonspecific abnormal finding of lung field
CPT/HCPCS: 71250

== ENCOUNTER 2025-03-22 11:55 | Outpatient (CLI) | payer MEDICARE, SELFPAY ==
--- NOTE | 2025-03-22 12:30 | CTR_ITS ---
PROCEDURE INFORMATION: Exam: CT Chest Without Contrast; Diagnostic Exam date and time: 03/22/2025 12:13 PM Age: 74 years old Clinical indication: Abnormal findings; Abnormal radiologic exam of lung or chest; Additional info: Left lung mass on CT TECHNIQUE: Imaging protocol: Diagnostic computed tomography of the chest without contrast. Radiation optimization: All CT scans at this facility use at least one of these dose optimization techniques: automated exposure control; mA and/or kV adjustment per patient size (includes targeted exams where dose is matched to clinical indication); or iterative reconstruction. COMPARISON: 1. [place] contrast [id number] 03/29/2019 12:[address] chest wo con [id number] 12/11/2024 4:01 PM RADIATION DOSE METRICS: Total DLP (mGy-cm): 326.92 FINDINGS: Lungs: Similar mild centrilobular and paraseptal emphysematous changes. Interval resolution of the previously seen 2 cm nodule in the left lower lobe. Similar 1.5 cm subpleural nodular opacity in the medial right lower lobe on series 5, image 32. This has not significantly changed since at least 03/29/2019. Stable 1.2 cm ground-glass nodule in the superior segment right lower lobe on image 23. A few sub 6 mm nodules appear unchanged. Pleural spaces: Unremarkable. No pneumothorax. No pleural effusion. Heart: Unremarkable. No cardiomegaly. No pericardial effusion. Coronary arteries: Mild coronary artery calcifications. Lymph nodes: Unremarkable. No enlarged lymph nodes. Vasculature: The thoracic aorta is nonaneurysmal with scattered atherosclerotic calcifications. Kidneys: Partially imaged left renal cysts measuring up to 9 cm as before. Bones/joints: Unremarkable. No acute fracture. Soft tissues: Unremarkable. CT/CT chest wo con [id number] IMPRESSION: 1. Interval resolution of the previously seen left lower lobe nodular opacity, likely an infectious/inflammatory process. 2. No significant interval change additional scattered nodules as detailed above. 3. Remainder stable. COMMENTS: The presence of pulmonary emphysema on CT is an independent risk factor for lung cancer. In the absence of a history or active diagnosis of lung cancer, it is recommended that this patient with emphysema be evaluated for enrollment in a low dose CT lung cancer screening program.
== END 2025-03-22 11:56 | disposition home or self-care (01) ==
LOC: RAD 11:56
PROVIDERS: PCP Family Medicine; Visit Provider Family Medicine
DX: R91.1 Solitary pulmonary nodule (principal); R91.8 Other nonspecific abnormal finding of lung field; J43.2 Centrilobular emphysema; I25.10 Atherosclerotic heart disease of native coronary artery without angina pectoris; Q61.02 Congenital multiple renal cysts
CPT/HCPCS: 71250

== ENCOUNTER → 2025-05-14 13:58 | Outpatient (BNVA) | payer MEDICARE, SELFPAY | PROVIDERS: PCP Family Medicine; Visit Provider Family Medicine | DX: D51.9 Vitamin B12 deficiency anemia, unspecified (principal); Z11.59 Encounter for screening for other viral diseases | CPT/HCPCS: 82607; 85025; 86803 ==